=== PATIENT | female | born 2000 | race Asian ===

== ENCOUNTER 2024-12-17 13:18 | Emergency (ER) | payer OTHER ==
[2024-12-17 13:26] VITALS: BP 113/58; PULSE 89; RESP 18; TEMP 97.9; BMI 25.0
[2024-12-17] MEDS ORDERED: IBUPROFEN 600 MG TABLET (FP) PO ONE (14:16)
[2024-12-17] MEDS ORDERED: ACETAMINOPHEN 500 MG TABLET (FP) ONE (14:16)
[2024-12-17] MEDS: IBUPROFEN 600 MG TABLET (FP) PO ONE (14:22)
[2024-12-17] MEDS: ACETAMINOPHEN 500 MG TABLET (FP) PO ONE (14:22)
== END 2024-12-17 14:22 | disposition home or self-care (01) ==
LOC: JERFT 13:18
DX: M62.830 Muscle spasm of back (principal); R07.89 Other chest pain; V87.7XXA Person injured in collision between other specified motor vehicles (traffic), initial encounter; Y92.410 Unspecified street and highway as the place of occurrence of the external cause
CPT/HCPCS: 99283-25